=== PATIENT | female | born 1985 | race Caucasian/White ===

== ENCOUNTER 2016-05-02 19:50 | Emergency (ER) | payer OTHER ==
[2016-05-02] MEDS ORDERED: AMOX/CLAV 875 MG/125 MG TABLET PO STA (20:08)
[2016-05-02] MEDS ORDERED: AMOX/CLAV 875 MG/125 MG TABLET PO ONE (20:11)
== END 2016-05-02 20:23 | disposition home or self-care (01) ==
DX: S61.551A Open bite of right wrist, initial encounter (principal); W54.0XXA Bitten by dog, initial encounter; Y93.K9 Activity, other involving animal care; Y92.009 Unspecified place in unspecified non-institutional (private) residence as the place of occurrence of the external cause
CPT/HCPCS: 99283; A9270

== ENCOUNTER 2016-08-10 21:49 | Emergency (ER) | payer OTHER ==
[2016-08-10] MEDS ORDERED: ONDANSETRON ODT 4 MG TABLET TL STA (22:19)
[2016-08-10] MEDS ORDERED: ONDANSETRON ODT 4 MG TABLET ONE (22:22)
== END 2016-08-10 22:43 | disposition home or self-care (01) ==
DX: K52.9 Noninfective gastroenteritis and colitis, unspecified (principal); E03.9 Hypothyroidism, unspecified
CPT/HCPCS: 81001; 81025; 99283; Q0162